=== PATIENT | female | born 1945 | race Caucasian/White ===

== ENCOUNTER → 2022-02-20 08:15 | Outpatient (CLI) | payer MEDICARE, SELFPAY ==
[2022-02-20 19:04] LABS: Basophils # 0.1 K/mm3 (0-0.2); Basophils % 0.6 % (0.1-2.0); Eosinophils # 0.2 K/mm3 (0.0-0.4); Eosinophils % 1.7 % (0.1-12.0); Hematocrit 46.7 % (37.0-47.0); Hemoglobin 15.4 g/dL (12.2-16.2); Lymphocytes # 2.1 K/mm3 (0.7-4.5); Lymphocytes % 23.7 % (10-50); Mean Corpuscular Hemoglobin 30.4 pg (27.0-31.2); Mean Corpuscular Volume 92.3 fl (81-99); Mean Platelet Volume 11.3 fl (7.4-10.4); Monocytes # 0.4 K/mm3 (0.1-1.0); Neutrophils # 6.1 K/mm3 (1.8-7.8); Platelet Count 232 K/mm3 (142-424); Red Blood Count 5.06 M/mm3 (4.20-5.40); Red Cell Distribution Width 12.9 % (11.5-17.5); White Blood Count 8.8 K/mm3 (4.8-10.8)
[2022-02-20 19:30] LABS: Alanine Aminotransferase 29 U/L (12-78); Albumin Level 3.7 g/dl (3.5-5.0); Albumin/Globulin Ratio 1.4 (1.1-1.8); Alkaline Phosphatase 272 U/L (38-126); Anion Gap 8.9 mEq/L (5-15); Aspartate Amino Transferase 22 U/L (14-36); Blood Urea Nitrogen 21 mg/dl (7-17); Calcium 8.9 mg/dl (8.4-10.2); Carbon Dioxide 29 mmol/L (22.0-30.0); Chloride 104 mmol/L (98-107); Chol/HDL Ratio 5.7 (1-3.5); Cholesterol 224 mg/dl (140-200); Estimated Glomerular Filt Rate 82 ml/min (>60); GFR (African American) 99 ML/MIN (>60); Globulin 2.6 g/dL (1.3-3.2); Glucose 298 mg/dl (74-100); HDL Cholesterol 39 mg/dl (40-60); Potassium 3.9 mmoL/L (3.5-5.1); Sodium 138 mmol/L (136-145); Total Protein,Serum 6.3 g/dl (6.3-8.2); Triglycerides 379 mg/dl (30-150); VLDL Cholesterol 76 mg/dL (0-40)
[2022-02-20 19:40] LABS: Direct LDL Cholesterol 101.97 mg/dL (100-129)
[2022-02-20 19:45] LABS: 25-OH Vitamin D, Total 22.4 ng/mL (30-100)
[2022-02-20 20:01] LABS: Thyroid Stimulating Hormone 0.38 uIU/mL (0.465-4.68)
== END ==
PROVIDERS: PCP Nurse Practitioner; Visit Provider Nurse Practitioner
DX: E11.9 Type 2 diabetes mellitus without complications (principal); D44.0 Neoplasm of uncertain behavior of thyroid gland; E55.9 Vitamin D deficiency, unspecified; Z79.84 Long term (current) use of oral hypoglycemic drugs
CPT/HCPCS: 80053; 80061; 82306; 84443; 85025

== ENCOUNTER → 2022-02-24 10:44 | Outpatient (CLI) | payer MEDICARE, SELFPAY ==
--- NOTE | 2022-02-24 10:49 | US_ITS ---
FINAL REPORT CLINICAL HISTORY: neoplasm of thyroid, hx partial thyroidectomy FINDINGS: THYROID ULTRASOUND The right lobe of the thyroid measures 5.7 x 4.0 x 3.0 cm. The left lobe of the thyroid has been surgically removed. There are multiple small right is Bonds cysts. A a mass in the right lobe of the thyroid measures 4.6 x 3.5 x 2.5 cm is predominantly solid and isoechoic consistent with a TI-RADS 3. An 11 x 10 x 8 mm lower pole right thyroid nodule is cystic, solid and hypoechoic consistent with a TI-RADS 3. A hypoechoic and solid 10 x 6 x 4 mm TI-RADS 3 nodule is also seen in the right lobe of the thyroid. There is a 10 x 8 x 4 mm cystic TI-RADS 1 nodule in the right lobe of the thyroid. There are other smaller nodules. IMPRESSION: Multiple right thyroid nodules. Recommend ultrasound-guided FNA of the dominant right 4.6 cm mass. Left thyroid lobe surgically absent. Reviewed, Interpreted and Dictated by Davey Balderas III, MD Transcribed by Gabriel Garcia Authenticated and [facility]
== END ==
PROVIDERS: PCP Nurse Practitioner; Visit Provider Nurse Practitioner
DX: D44.0 Neoplasm of uncertain behavior of thyroid gland (principal); E89.0 Postprocedural hypothyroidism
CPT/HCPCS: 76536

== ENCOUNTER → 2022-03-07 09:41 | Outpatient (CLI) | payer MEDICARE, SELFPAY ==
--- NOTE | 2022-03-07 09:41 | US_ITS ---
FINAL REPORT CLINICAL HISTORY: .RT THYROID NODULE/MASS, JORDIN HARDING FINDINGS: Ultrasound guided thyroid biopsy. HISTORY: Right thyroid mass. Attending radiologist: Dr. Balderas Physician Glass Pulverizer Equipment Operator: Jordin Gaspar PA-C PROCEDURE: After informed consent was obtained and a time-out was performed, the patient was prepped and draped in usual sterile fashion over the right neck. Utilizing local anesthesia and sterile technique with a 25-gauge needle, access to lesion was obtained. 4 passes were made. The patient received no conscious sedation. The patient tolerated procedure well and left the department in good condition. IMPRESSION: Status post ultrasound guided biopsy of right lobe of the thyroid without immediate complication. Films reviewed , interpreted and dictated by Dr. Balderas. Transcribed by Jordin Gaspar PA-C. Reviewed, Interpreted and Dictated by Davey Balderas III, MD Transcribed by MEHDI Stanley Authenticated and [facility]
== END ==
PROVIDERS: PCP Nurse Practitioner; Visit Provider Nurse Practitioner
DX: E04.1 Nontoxic single thyroid nodule (principal)
CPT/HCPCS: 10005; 76536; 88173; 88305

== ENCOUNTER → 2023-02-24 23:21 | Outpatient (CLI) | payer MEDICARE, SELFPAY ==
[2023-02-24 18:40] LABS: Basophils % 0.6 % (0.1-2.0); Eosinophils # 0.2 K/mm3 (0.0-0.4); Eosinophils % 2.4 % (0.1-12.0); Hematocrit 49.4 % (37.0-47.0); Hemoglobin 16.2 g/dL (12.2-16.2); Lymphocytes # 2.8 K/mm3 (0.7-4.5); Lymphocytes % 36.3 % (10-50); Mean Corpuscular HGB Conc 32.7 g/dL (31.8-35.4); Mean Corpuscular Hemoglobin 30.5 pg (27.0-31.2); Mean Corpuscular Volume 93.2 fl (81-99); Mean Platelet Volume 8.6 fl (7.4-10.4); Monocytes # 0.5 K/mm3 (0.1-1.0); Monocytes % 6.6 % (1.7-9.3); Neutrophils # 4.2 K/mm3 (1.8-7.8); Neutrophils % 54.1 % (37.0-80.0); Platelet Count 245 K/mm3 (142-424); Red Cell Distribution Width 13.1 % (11.5-17.5); White Blood Count 7.7 K/mm3 (4.8-10.8)
[2023-02-24 18:43] LABS: Creatinine,Urine Random 111 mg/dL (Not Estab.)
[2023-02-24 18:44] LABS: Microalbumin/Creatinine Ratio 5.5
[2023-02-24 18:50] LABS: Alanine Aminotransferase 24 U/L (12-78); Albumin Level 4.3 g/dl (3.5-5.0); Albumin/Globulin Ratio 1.4 (1.1-1.8); Alkaline Phosphatase 147 U/L (38-126); Anion Gap 11.4 mEq/L (5-15); Aspartate Amino Transferase 29 U/L (14-36); Bilirubin,Total 0.7 mg/dl (0.2-1.3); Blood Urea Nitrogen 17 mg/dl (7-17); Calcium 8.8 mg/dl (8.4-10.2); Carbon Dioxide 28 mmol/L (22.0-30.0); Chloride 103 mmol/L (98-107); Chol/HDL Ratio 4.5 (1-3.5); Cholesterol 257 mg/dl (140-200); Estimated Glomerular Filt Rate 70 ml/min (>60); GFR (African American) 85 ML/MIN (>60); Glucose 118 mg/dl (74-100); HDL Cholesterol 57 mg/dl (40-60); Potassium 4.4 mmoL/L (3.5-5.1); Sodium 138 mmol/L (136-145); Total Protein,Serum 7.3 g/dl (6.3-8.2); Triglycerides 165 mg/dl (30-150); VLDL Cholesterol 33 mg/dL (0-40)
[2023-02-24 19:01] LABS: Direct LDL Cholesterol 150.02 mg/dL (100-129)
[2023-02-24 19:13] LABS: 25-OH Vitamin D, Total 79.8 ng/mL (30-100)
[2023-02-24 19:22] LABS: Thyroid Stimulating Hormone < 0.02 uIU/mL (0.465-4.68)
[2023-02-24 19:45] LABS: Vitamin B12 > 1000 pg/mL (239-931)
[2023-02-24 19:50] LABS: Hemoglobin A1C 6.4 % (4.0-6.0)
== END ==
PROVIDERS: PCP Nurse Practitioner; Visit Provider Nurse Practitioner
DX: E11.9 Type 2 diabetes mellitus without complications (principal); E55.9 Vitamin D deficiency, unspecified; E78.5 Hyperlipidemia, unspecified; Z79.84 Long term (current) use of oral hypoglycemic drugs
CPT/HCPCS: 80053; 80061; 82043; 82306; 82570; 82607; 83036; 84443; 85025

== ENCOUNTER 2023-05-25 18:20 | Outpatient (CLI) | payer MEDICARE, SELFPAY ==
[2023-05-25 18:55] LABS: Alanine Aminotransferase 34 U/L (12-78); Albumin Level 4.1 g/dl (3.5-5.0); Albumin/Globulin Ratio 1.6 (1.1-1.8); Alkaline Phosphatase 173 U/L (38-126); Anion Gap 10.4 mEq/L (5-15); Aspartate Amino Transferase 33 U/L (14-36); Bilirubin,Total 0.7 mg/dl (0.2-1.3); Blood Urea Nitrogen 18 mg/dl (7-17); Carbon Dioxide 28 mmol/L (22.0-30.0); Chloride 106 mmol/L (98-107); Chol/HDL Ratio 3.2 (1-3.5); Cholesterol 167 mg/dl (140-200); Estimated Glomerular Filt Rate 82 ml/min (>60); GFR (African American) 99 ML/MIN (>60); Globulin 2.5 g/dL (1.3-3.2); Glucose 134 mg/dl (74-100); HDL Cholesterol 52 mg/dl (40-60); Potassium 4.4 mmoL/L (3.5-5.1); Sodium 140 mmol/L (136-145); Total Protein,Serum 6.6 g/dl (6.3-8.2); Triglycerides 150 mg/dl (30-150); VLDL Cholesterol 30 mg/dL (0-40)
[2023-05-25 19:05] LABS: Direct LDL Cholesterol 77.98 mg/dL (100-129)
== END 2023-05-25 23:59 ==
LOC: LAB.DROPOF 18:21
PROVIDERS: PCP Nurse Practitioner; Visit Provider Nurse Practitioner
DX: E11.9 Type 2 diabetes mellitus without complications (principal); E78.5 Hyperlipidemia, unspecified; Z79.899 Other long term (current) drug therapy
CPT/HCPCS: 80053; 80061

== ENCOUNTER 2024-12-26 10:13 | Outpatient (CLI) | payer MEDICARE, SELFPAY ==
--- OUTSIDE RECORDS SUMMARY | 2024-11-18 08:54 | XMS_ITS | Encounter Summary ---
Author Organization [place] [address] Care Team Providers Care Adapted Physical Education Specialist Name Role Phone Unavailable Primary Care Provider Unavailabl e Reason for Visit * Ultrasound (Routine) - Pending Review Specialty Diagnoses / Procedures Referred By Contac t Referred To Contact Radiology Diagnoses Thyroid nodule Procedures US THYROID US THYROID SURVEILLANCE US THYROID Jacinto Bush MD [address] [place] [address] Phone: tel: fax: Referral ID Status Reason Start Date Expiration Date V isits Requested Visits Authorized [id number] Pending Review 07/27/2024 07/27/2025 1 1 Encounter Details Date Type Department Care Team (Latest Contact Info) Description 11/18/2024 8:54 AM EDT - 11/18/2024 11:59 PM EDT Hospital Encounter [facility] [address] Jacinto Bush MD [address] [place] [address] Thyroid nodule Discharge Disposition: Home or Self Care Social History Tobacco Use Types Packs/Day Years Used Date Smoking Tobacco: Never Smokeless Tobacco: Never Alcohol Use Standard Drinks/Week Comments Never 0 (1 standard drink = 0.6 oz pur e alcohol) Sexually Active Control Partners Comments Yes Post-menopausal Male - sp ouse only Comments No Sex and Gender Information Value Date Recorded Sex Assigned at Not on file Legal Sex Female 6:06 PM EDT Gender Identity Not on file Sexual Orientation Not on file documented as of this encounter Medications at Time of Discharge biotin 5,000 mcg SL Tablet, Sublingual Take 5,000 mg by mouth daily. calcium carbonate/vitamin D3 (VITAMIN D-3 ORAL) Take 125 mcg by mouth daily. loratadine (CLARITIN ORAL) Multivit-Mineral- Iron-Lutein Oral Tablet Take by mouth daily. psyllium husk/calcium carb (FIBER PLUS CALCIUM ORAL) Take 2 Tablets by mouth daily. rosuvastatin (CRESTOR) 10 mg Oral Tablet Take 1 Tablet by mouth daily. 90 Tablet 3 01/27/2024 TRUE METRIX GLUCOSE TEST STRIP Misc Strip 03/31/2022 glimepiride (AMARYL) 4 mg Oral Tablet Take 1 Tablet by mouth daily. 90 Tablet 1 07/27/2024 11/23/2024 documented as of this encounter Discharge Disposition Disposition Code Departure Means Destination Home or Self Care documented in this encounter Plan of Treatment Upcoming Encounters Date Type Department Care Team (Late st Contact Info) Description 05/24/2025 2:45 PM EST [facility] [place] [address] [facility] [address] [place] [phone] Jacinto Bush MD [address] [place] [address] documented as of this encounter Procedures Procedure Name Priority Date/Time Associated Diagnosis Comments US THYROID Routine 11/18/2024 9:42 AM EDT Thyroid nodule documented in this encounter Results * US THYROID (11/18/2024 9:42 AM EDT) Anatomical Region Laterality Modality Neck Ultrasound 11/18/2024 9:42 AM EDT Impressions 11/18/2024 10:04 AM EDT Stable right-sided thyroid nodule. Recommend biopsy if not previously performed. - Note: Radiology results need to be interpreted within a comprehensive clinical context. If you have questions about the radiology report, please contact the office of the ordering clinician. Narrative 11/18/2024 10:04 AM EDT THYROID SONOGRAPHY, 11/18/2024 9:42 AM CLINICAL HISTORY: Thyroid nodule(s). 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 COMPARISON: 09/30/2023 PROCEDURE COMMENTS: Sonographic evaluation of the thyroid gland per protocol. Images and technologist notes reviewed. METHODOLOGY: Up to 4 nodules with the highest scores are reported using the Thyroid Imaging Reporting and Data System (TI-RADS). This system promotes a common lexicon for thyroid nodule description, focusing on relevant imaging characteristics to allow risk stratification of individual nodules and makes recommendations for biopsy or sonographic follow-up based on the estimated risk profile. Caveat: Deviation from the below TI-RADS management recommendations may be appropriate based on individual patient variables and/or differing society criteria. Right lobe measures: 6.7 x 4.0 x 3.2 cm. Left lobe measures: Resected cm. RIGHT-side lymph nodes: No suspicious lymph nodes. LEFT-side lymph nodes: No suspicious lymph nodes. Nodule #1: Location: Right Size: 3.7 x 3.6 x 2.9 cm Prior measurement 3.8 x 2.6 x 3.9 cm Composition: Solid or almost completely solid. 2 points. Echogenicity: Hypoechoic (equal to or more echogenic than strap muscles.) 2 points. Shape: Not taller than wide. 0 points. Margin: Smooth. 0 points. Echogenic foci: None or large comet-tails. 0 points. Total points: 4-6 points. TI-RADS category 4. FNA if 1.5 cm or greater. Follow in 1, 2, 3, and 5 yrs if 1-1.4cm. No significant additional finding. Procedure Note Bautista Rodriguez MD - 11/18/2024 THYROID SONOGRAPHY, 11/18/2024 9:42 AM CLINICAL HISTORY: Thyroid nodule(s). 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 COMPARISON: 09/30/2023 PROCEDURE COMMENTS: Sonographic evaluation of the thyroid gland perprotocol. Images and technologist notes reviewed. METHODOLOGY: Up to 4 nodules with the highest scores are reported usingthe Thyroid Imaging Reporting and Data System (TI-RADS). This system promotesa common lexicon for thyroid nodule description, focusing on relevantimaging characteristics to allow risk stratification of individual nodules andmakes recommendations for biopsy or sonographic follow-up based on the estimatedrisk profile. Caveat: Deviation from the below TI-RADS management recommendations maybe appropriate based on individual patient variables and/or differingsociety criteria. Right lobe measures: 6.7 x 4.0 x 3.2 cm. Left lobe measures: Resected cm. RIGHT-side lymph nodes: No suspicious lymph nodes. LEFT-side lymph nodes: No suspicious lymph nodes. Nodule #1: Location: Right Size: 3.7 x 3.6 x 2.9 cm Prior measurement 3.8 x 2.6 x3.9 cm Composition: Solid or almost completely solid. 2 points. Echogenicity: Hypoechoic (equal to or more echogenic than strap muscles.)2 points. Shape: Not taller than wide. 0 points. Margin: Smooth. 0 points. Echogenic foci: None or large comet-tails. 0 points. Total points: 4-6 points. TI-RADS category 4. FNA if 1.5 cm or greater.Follow in 1, 2, 3, and 5 yrs if 1-1.4cm. No significant additional finding. IMPRESSION: Stable right-sided thyroid nodule. Recommend biopsy if not previously performed. - Note: Radiology results need to be interpreted within a comprehensiveclinical context. If you have questions about the radiology report, please contactthe office of the ordering clinician. us Jacinto Bush MD [facility] US ORDERABLES Final Resul t documented in this encounter Visit Diagnoses Diagnosis Thyroid nodule Nontoxic uninodular goiter documented in this encounter Additional Health Concerns Assessment Noted Time A fall risk assessment has been complete d for the patient 06/19/2022 10:40 AM EDT documented as of this encounter
--- OUTSIDE RECORDS SUMMARY | 2024-11-23 14:45 | XMS_ITS | Encounter Summary ---
Author Organization [place] [address] Care Team Providers Care Roof Technician Name Role Phone Unavailable Primary Care Provider Unavailabl e Reason for Visit * Reason Comments Other Thyroid US results Encounter Details Date Type Department Care Team (Late st Contact Info) Description 11/23/2024 2:45 PM EDT [facility] [place] [address] [facility] [address] [place] [address] Jacinto Bush MD [address] [place] [address] Type 2 diabetes mellitus with stage 3a chronic kidney disease, without long-term current use of insulin (HCC) (Primary Dx); Hyperlipidemia associated with type 2 diabetes mellitus (HCC); Hypothyroidism, postablative; Thyroid nodule Social History Tobacco Use Types Packs/Day Years Used Date Smoking Tobacco: Never Smokeless Tobacco: Never Tobacco Cessation:Counseling Given: Not Answered Alcohol Use Standard Drinks/Week Comments Never 0 [...] on file documented as of this encounter Last Filed Vital Signs Vital Sign Reading Time Taken Comments Blood Pressure 117/74 11/23/2024 2:36 PM EDT Pulse 72 11/23/2024 2:36 PM EDT Temperature - - Respiratory Rate 16 11/23/2024 2:36 PM EDT Oxygen Saturation - - Inhaled Oxygen Concentration - - Weight 74.4 kg (164 lb) 11/23/2024 2:36 PM EDT Height 165.1 cm (5' 5 ) 11/23/2024 2:36 PM EDT Body Mass Index 27.29 11/23/2024 2:36 PM EDT documented in this encounter Ordered Prescriptions Prescription Sig Dispense Quantity Refills Last Filled Start Date End Date glimepiride (AMARYL) 4 mg Oral Tablet Take 1 Tablet by mouth daily. 90 Tablet 1 11/23/2024 documented in this encounter Progress Notes * Jacinto Bush MD - 11/23/2024 2:45 PM EDT Subjective Subjective: Patient ID: Claudine Briseno is a 79 y.o. female. Chief Complaint Patient presents with Other Thyroid US results HPI: Claudine returns for follow up of thyroid nodule and discussion of her thyroid ultrasound results. She reports feeling well and has been following her treatment plan. She had ultrasound of thyroid completed that I reviewed with her. PMSFH: Past Medical History: Diagnosis Date Diabetes mellitus (HCC) Hyperlipidemia Hyperthyroidism Patients past medical, family and social histories were reviewed and updated. There were no changesexcept as noted. Review of Systems Objective Outpatient Medications Marked as Taking for the 11/23/24 encounter (Office Visit) with Lulu Bush MD Medication Sig Dispense Refill biotin 5,000 mcg SL Tablet, Sublingual Take 5,000 mg by mouth daily. calcium carbonate/vitamin D3 (VITAMIN D-3 ORAL) Take 125 mcg by mouth daily. glimepiride (AMARYL) 4 mg Oral Tablet Take 1 Tablet by mouth daily. 90 Tablet 1 [DISCONTINUED] glimepiride (AMARYL) 4 mg Oral Tablet Take 1 Tablet by mouth daily. 90 Tablet 1 loratadine (CLARITIN ORAL) Gxjhczzi-Hfkeuvz-Tegm-Lutein Oral Tablet Take by mouth daily. psyllium husk/calcium carb (FIBER PLUS CALCIUM ORAL) Take 2 Tablets by mouth daily. rosuvastatin (CRESTOR) 10 mg Oral Tablet Take 1 Tablet by mouth daily. 90 Tablet 3 TRUE METRIX GLUCOSE TEST STRIP Misc Strip Objective: DATA REVIEW: LABS Recent and historical labs reviewed in chart, results discussed with patient. IMAGING COMPARISON: 10/16/2022 PROCEDURE COMMENTS: Sonographic evaluation of the thyroid gland per protocol. Images and technologist notes reviewed. Right lobe measures: 6.1 x 4 x 2.9 cm. Left lobe measures: Absent RIGHT-side lymph nodes: No suspicious lymph nodes. LEFT-side lymph nodes: No suspicious lymph nodes. Nodule #1: Location: Right lobe Size: 3.8 x 2.9 x 4 Prior measurement 4.7 x 3.6 x 2.5 Composition: Solid or almost completely solid. 2 points. Echogenicity: Hyperechoic or isoechoic. 1 point. Shape: Not taller than wide. 0 points. Margin: Smooth. 0 points. Echogenic foci: None or large comet-tails. 0 points. Total points: 3 points. TI-RADS category 3. FNA if 2.5cm or greater in longest dimension. Follow in 1, 3, and 5 years if 1.5-2.4 cm in longest dimension. No lesion is seen in the left thyroid bed. Some scattered cysts and spongiform nodules in the inferior right lower pole region appear grossly stable. IMPRESSION: No change in thyroid nodules allowing for variances in measurement technique. DIABETES CGM Lab Results Component Value Date HGBA1C 7.9 (H) 07/25/2024 HGBA1C 7.3 (H) 01/25/2024 HGBA1C 7.4 (H) 10/19/2023 RENAL Lab Results Component Value Date CREATININE 0.75 07/25/2024 Lab Results Component Value Date MICROALBCR 07/25/2024 Comment: Because the albumin level is below the level of detection in this urine specimen, the laboratory isunable to calculate a reliable albumin/creatinine ratio. Microalbuminuria is unlikely if the urine albumin concentration is less than 20- 30 mg/L in a randomspecimen. LIPIDS No components found for: LDL Lab Results Component Value Date LDLCALC 60 07/25/2024 No results found for: LDLDIRECT Lab Results Component Value Date HDL 54 07/25/2024 Lab Results Component Value Date TRIG 120 07/25/2024 Lab Results Component Value Date CHOLESTEROL 135 07/25/2024 OTHER Lab Results Component Value Date TSH 0.480 07/25/2024 FREET4 1.09 07/25/2024 Lab Results Component Value Date YKZI21GN 22.4 02/20/2022 No results found for: [id number] Vitals: 11/23/24 1436 BP: 117/74 Pulse: 72 Resp: 16 Weight: 164 lb (74.4 kg) Height: 5' 5 (1.651 m) Body mass index is 27.29 kg/m??. Physical Exam Vitals and nursing note reviewed. Neck: Thyroid: Thyroid mass and thyromegaly present. Comments: Palpable nodule right thyroid lobe. Assessment and Plan: Diagnoses and all orders for this visit: Type 2 diabetes mellitus with stage 3a chronic kidney disease, without long-term current use of insulin (HCC) (Chronic) - MICROALBUMIN/CREATININE RATIO URINE; Future; Expected date: 04/25/2025 (Before Next Appt) - HEMOGLOBIN A1C; Future; Expected date: 04/25/2025 (Before Next Appt) - CBC; Future; Expected date: 04/25/2025 (Before Next Appt) Hyperlipidemia associated with type 2 diabetes mellitus (HCC) (Chronic) - COMPREHENSIVE METABOLIC PANEL; Future; Expected date: 04/25/2025 (Before Next Appt) - LIPID PANEL REFLEX; Future; Expected date: 04/25/2025 (Before Next Appt) Hypothyroidism, postablative - T3 FREE; Future; Expected date: 04/25/2025 (Before Next Appt) - T4, FREE (THYROXINE); Future; Expected date: 04/25/2025 (Before Next Appt) - THYROID STIMULATING HORMONE; Future; Expected date: 04/25/2025 (Before Next Appt) Thyroid nodule Other orders - glimepiride (AMARYL) 4 mg Oral Tablet; Take 1 Tablet by mouth daily. Dispense: 90 Tablet; Refill:1 Assessment and Recommendations: Type 2 diabetes with hyperglycemia is stable but not at goal with HbA1c of 7.9%. She is tolerating the glimepiride 4 mg dose without any hypoglycemia. She feels this is working better for her. Thyroid nodule right lobe is asymptomatic. Her biopsy in 2022 was consistent with benign follicularnodule. Her ultrasound shows stable nodule size. The TI RADS scoring was changed to 4 but since this was consistent with benign follicular nodule and it has not increased in size I recommend continued observation with ultrasound around October 2025. Hypercholesterolemia with LDL at goal with rosuvatatin 10 mg daily. She will have fasting labs donebefore follow up in May. Blood pressure well controlled. Return to office: Return in about 6 months (around 05/23/2025) for Type 2 diabetes. documented in this encounter Plan of Treatment Upcoming Encounters Date Type Department Care Team (Late st Contact Info) Description 05/24/2025 2:45 PM EST Office Visit [facility] [place] [address] [facility] [address] [place] [phone] Jacinto Bush MD [address] [place] [address] Scheduled Orders Name Type Priority Associated Diagnoses Orde r Schedule MICROALBUMIN/CREATININE RATIO URINE Lab Routine Type 2 diabetes mellitus with stage 3a chronic kidney disease, without long-term current use of insulin (HCC) Expected: 04/25/2025 (Approximate), Expires: 11/23/2025 HEMOGLOBIN A1C Lab Routine Type 2 diabetes mellitus with stage 3a chronic kidney disease, without long-term current use of insulin (HCC) Expected: 04/25/2025 (Approximate), Expires: 11/23/2025 COMPREHENSIVE METABOLIC PANEL Lab Routine Hyperlipidemia associated with type 2 diabetes mellitus (HCC) Expected: 04/25/2025 (Approximate), Expires: 11/23/2025 LIPID PANEL REFLEX Lab Routine Hyperlipidemia associated with type 2 diabetes mellitus (HCC) Expected: 04/25/2025 (Approximate), Expires: 11/23/2025 CBC Lab Routine Type 2 diabetes mellitus with stage 3a chronic kidney disease, without long-term current use of insulin (HCC) Expected: 04/25/2025 (Approximate), Expires: 11/23/2025 T3 FREE Lab Routine Hypothyroidism, postablative Expected: 04/25/2025 (Approximate), Expires: 11/23/2025 T4, FREE (THYROXINE) Lab Routine Hypothyroidism, postablative Expected: 04/25/2025 (Approximate), Expires: 11/23/2025 THYROID STIMULATING HORMONE Lab Routine Hypothyroidism, postablative Expected: 04/25/2025 (Approximate), Expires: 11/23/2025 documented as of this encounter Visit Diagnoses Diagnosis Type 2 diabetes mellitus with stage 3a chronic kidney disease, without long-term current use of insulin (HCC)- Primary Hyperlipidemia associated with type 2 diabetes mellitus (HCC) Hypothyroidism, postablative Other postablative hypothyroidism Thyroid nodule Nontoxic uninodular goiter documented in this encounter Discontinued Medications Medication Sig Discontinue Reason Start Date End Da te glimepiride (AMARYL) 4 mg Oral Tablet Take 1 Tablet by mouth daily. Reorder 07/27/2024 11/23/2024 documented as of this encounter Additional Health Concerns Assessment Noted Time A fall risk assessment has been complete d for the patient 06/19/2022 10:40 AM EDT documented as of this encounter
[2024-12-26 16:20] LABS: Hematocrit 42.0 % (37.0-47.0); Hemoglobin 13.8 g/dL (12.2-16.2); Immature Granulocytes % 0.2 %; Mean Corpuscular HGB Conc 32.9 g/dL (31.8-35.4); Mean Corpuscular Hemoglobin 29.9 pg (27.0-31.2); Mean Corpuscular Volume 90.9 fl (81-99); Nucleated Red Blood Cells % 0 %; Platelet Count 163 K/mm3 (142-424); Red Blood Count 4.62 M/mm3 (4.20-5.40); Red Cell Distribution Width-SD 41.2 fL; White Blood Count 6.0 K/mm3 (4.8-10.8)
[2024-12-26 16:56] LABS: Alanine Aminotransferase 25 U/L (12-78); Albumin Level 3.9 g/dl (3.5-5.0); Albumin/Globulin Ratio 1.6 (1.1-1.8); Alkaline Phosphatase 163 U/L (38-126); Anion Gap 11.6 mEq/L (5-15); Aspartate Amino Transferase 25 U/L (14-36); Bilirubin,Total 1.0 mg/dl (0.2-1.3); Blood Urea Nitrogen 14 mg/dl (7-17); Calcium 8.8 mg/dl (8.4-10.2); Carbon Dioxide 28 mmol/L (22.0-30.0); Chloride 103 mmol/L (98-107); Cholesterol 158 mg/dl (140-200); Creatinine,Serum 0.70 mg/dl (0.52-1.04); Estimated Glomerular Filt Rate 81 ml/min (>60); GFR (African American) 98 ML/MIN (>60); Globulin 2.5 g/dL (1.3-3.2); Glucose 125 mg/dl (74-100); HDL Cholesterol 51 mg/dl (40-60); Potassium 4.6 mmoL/L (3.5-5.1); Sodium 138 mmol/L (136-145); Total Protein,Serum 6.4 g/dl (6.3-8.2); Triglycerides 165 mg/dl (30-150)
[2024-12-26 17:13] LABS: 25-OH Vitamin D, Total 61.8 ng/mL (30-100)
[2024-12-26 18:32] LABS: Hemoglobin A1C 6.9 % (4.0-6.0)
[2024-12-26 18:41] LABS: Hepatitis C Ab Qual. W/ RFX NEGATIVE (Negative)
--- OUTSIDE RECORDS SUMMARY | 2024-12-27 03:26 | XMS_ITS | Encounter Summary ---
Author Organization [place] [address] Care Team Providers Care Can Carrier Name Role Phone Unavailable Primary Care Provider Unavailabl e Encounter Details Date Type Department Care Team (Late st Contact Info) Description 11/22/2024 Results Follow-Up [facility] [address] [phone] Jacinto Bush MD [address] [place] [address] [phone] THYROID Social History Tobacco Use Types Packs/Day Years [...] on file documented as of this encounter Progress Notes * Jacinto Bush MD - 11/22/2024 12:48 PM EDT Ultrasound reviewed. Findings are stable. I will discuss these at upcoming follow up. documented in this encounter Plan of Treatment Upcoming Encounters Date Type Department Care Team (Late st Contact Info) Description 05/24/2025 2:45 PM EST Office Visit [facility] [place] [address] [facility] [address] [place] [address] Jacinto Bush MD [address] [place] [address] documented as of this encounter Visit Diagnoses Not on filedocumented in this encounter Additional Health Concerns Assessment Noted Time A fall risk assessment has been complete d for the patient 06/19/2022 10:40 AM EDT documented as of this encounter
--- OUTSIDE RECORDS SUMMARY | 2024-12-27 03:27 | XMS_ITS | Clinical Summary ---
Author Organization [facility] Address [address] [place] [address] Phone Care Team Providers Care Tie Up Worker Name Role Phone Unavailable Primary Care Provider Unavailabl e Allergies Active Allergy Reactions Criticality Noted Date Comments Mercurochrome 11 Dermatitis 06/19/2022 Mercury (Elemental) Other (See Comments) High 2022 Medications TRUE METRIX GLUCOSE TEST STRIP Misc Strip 03/31/2022 Active calcium carbonate/vitam in D3 (VITAMIN D-3 ORAL) Take 125 mcg by mouth daily. Active psyllium husk/calcium carb (FIBER PLUS CALCIUM ORAL) Take 2 Tablets by mouth daily. Active biotin 5,000 mcg SL Tablet, Sublingual Take 5,000 mg by mouth daily. Active Multivit-Minera f-Lunm-Dpcxei Oral Tablet Take by mouth daily. Active rosuvastatin (CRESTOR) 10 mg Oral Tablet Take 1 Tablet by mouth daily. 90 Tablet 3 01/27/2024 Active loratadine (CLARITIN ORAL) Acti ve glimepiride (AMARYL) 4 mg Oral Tablet Take 1 Tablet by mouth daily. 90 Tablet 1 11/23/2024 Active Active Problems Problem Noted Date Diagnosed Date Statin medication declined by patient 06/19/2022 Type 2 diabetes mellitus wit h hyperglycemia, without long-term current use of insulin 04/04/2022 Thyroid nodule 04/04/2022 Hyperlipidemia associated with type 2 diabetes m chuy 04/04/2022 Encounters Date Type Department Care Team Description 11/23/2024 2:45 PM EDT Office Visit [facility] [address] [facility] [address] [place] [address] Jacinto Bush MD Type 2 diabetes mellitus with stage 3a chronic kidney disease, without long-term current use of insulin (HCC) (Primary Dx); Hyperlipidemia associated with type 2 diabetes mellitus (HCC); Hypothyroidism, postablative; Thyroid nodule 11/22/2024 Results Follow-Up [address] [address] Jacinto Bush MD US THYROID 11/18/2024 8:54 AM EDT - 11/18/2024 11:59 PM EDT Hospital Encounter [facility] [place] [address] Jacinto Bush MD Thyroid nodule Discharge Disposition: Home or Self Care 11/18/2024 Travel 10/17/2024 Telephone [facility] [address] [facility] [address] [place] [address] Jacinto Bush MD Cancellation from Last 3 Months Surgical History Surgery Date Site/Laterality Comments THYROIDECTOMY CHOLECYSTECTOMY PARATHYROID GLAND SURGERY 2005 TOOTH EXTRACTION Right 08/2023 Medical History Medical History Date Comments Hyperlipidemia Diabetes mellitus (HCC) Hyperthyroidism Family History Medical History Relation Name Comments Diabetes Sister 1 Zaria Eric Diabetes Sister 2 Lisandra Hendy Diabetes Thyroid Disease Sister 3 Marianne Hendy Thyroid Disease Sister 4 Giselle Agiular Thyroid Diabetes Sister 5 Zaria Eric Thyroid Disease Sister 6 Marianne Hendy Thyroid Disease Sister 7 Zaria Eric Relation Name Status Comments Sister 1 Zaria Eric Sister 2 Lisandra Hendy Sister 3 Marianne Hendy Sister 4 Giselle Aguilar Sister 5 Zaria Eric Alive Sister 6 Marianne Hendy Alive Sister 7 Zaria Eric Alive Social History Tobacco Use Types Packs/Day Years [...] on file Sexual Orientation Not on file Obstetrics History Para Term AB IAB SAB Ectopic Multiple Livin g Live Births 3 Last Filed Vital Signs Vital Sign Reading Time Taken Comments Blood Pressure 117/74 11/23/2024 2:36 PM EDT Pulse 72 11/23/2024 2:36 PM EDT Temperature 36.9 C (98.4 F) 10/21/2022 1:05 PM EDT Respiratory Rate 16 11/23/2024 2:36 PM EDT Oxygen Saturation 97% 10/21/2022 1:05 PM EDT Inhaled Oxygen Concentration - - Weight 74.4 kg (164 lb) 11/23/2024 2:36 PM EDT Height 165.1 cm (5' 5 ) 11/23/2024 2:36 PM EDT Body Mass Index 27.29 11/23/2024 2:36 PM EDT Plan of Treatment Upcoming Encounters Date Type Department Care Team (Late st Contact Info) Description 05/24/2025 2:45 PM EST Office Visit [facility] Diabetes [place] [address] [facility] [address] [place] [id number] Jacinto Bush MD [address] [place] [id number] Health Maintenance Due Date Last Done Comments Wellness Exam Medicare 05/26/1948 Hepatitis C Screening 05/26/1965 Zoster (2 of 3) 03/10/2019 01/13/2019 Pneumococcal Vaccine 50+ (2 of 2 - PCV) 06/18/2019 06/17/2018 RSV or 60+ (1 - 1-dose 75+ series) 05/26/2022 COVID-19 Vaccine ( season) 2024 01/28/2021, 05/24/2020, 04/26/2020 Influenza Vaccine (#1) 2024 2, 01/07/2021, 12/27/2019, Additional history exists Hemoglobin A1c 01/25/2025 07/25/2024, 06/2023, 10/19/2023, Additional history exists Kidney Health: eGFR 07/25/2025 07/25/2024, 01/25/2024, 10/19/2023, Additional history exists Kidney Health: uACR 07/25/2025 07/25/2024, 01/25/2024, 10/19/2023, Additional history exists Lipids 07/25/2025 07/25/2024, 06/2023, 10/19/2023, Additional history exists Diabetic Eye Exam 03/02/2026 03/02/2024 DTaP/TDaP/Td (2 - Td or Tdap) 06/17/2028 06/17/2018 Bone Density Screening Completed 12/23/2019, 2012 Colon Cancer Screening Discontinued Colonoscopy Discontinued 02/28/2021 Cologuard Discontinued FIT Discontinued Hepatitis B Vaccine Aged Out No longe r eligible based on patient's age to complete this topic Meningococcal B Vaccine Aged Out No l onger eligible based on patient's age to complete this topic Sigmoidoscopy Discontinued Virtual Colonography Discontinued Procedures Procedure Name Priority Date/Time Associated Diagnosis Comments US THYROID Routine 11/18/2024 9:42 AM EDT Thyroid nodule MICROALBUMIN/CREATININ E RATIO URINE Routine 07/25/2024 8:30 AM EDT Type 2 diabetes mellitus with stage 3a chronic kidney disease, without long-term current use of insulin (HCC) COMPREHENSIVE METABOLIC PANEL Routine 07/25/2024 8:30 AM EDT Type 2 diabetes mellitus with stage 3a chronic kidney disease, without long-term current use of insulin (HCC) Hyperlipidemia associated with type 2 diabetes mellitus (HCC) LIPID PANEL REFLEX Routine 07/25/2024 8: 30 AM EDT Hyperlipidemia associated with type 2 diabetes mellitus (HCC) HEMOGLOBIN A1C Routine 07/25/2024 8:30 AM EDT Type 2 diabetes mellitus with stage 3a chronic kidney disease, without long-term current use of insulin (HCC) HM DIABETES EYE EXAM Routine 03/02/2024 2:50 PM EST DX BONE DENSITY AXIAL SKELETON Routine 12/23/2019 8:34 AM EDT Postmenopausal from Last 3 Months or Most Recently Relevant to Health Maintenance Results * US THYROID (11/18/2024 9:42 AM [...] CLINICAL HISTORY: Thyroid nodule(s). 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 COMPARISON: 09/30/2023 PROCEDURE COMMENTS: Sonographic evaluation of [...] CLINICAL HISTORY: Thyroid nodule(s). 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 COMPARISON: 09/30/2023 PROCEDURE COMMENTS: Sonographic evaluation of [...] the ordering clinician. us Jacinto Bush MD [facility] US ORDERABLES Final Resul t * LIPID PANEL REFLEX (07/25/2024 8:30 AM EDT) Cholesterol 135 <200 mg/dL 07/25/2024 6:49 PM EDT [facility] Comment: < 200 Desirable 200 - 239 Borderline High >= 240 High Triglyceride 120 <150 mg/dL 07/25/2024 6:49 PM EDT [facility] Comment: < 150 Normal 150 - 199 Borderline High 200 - 499 High >= 500 Very High HDL 54 >=40 mg/dL 07/25/2024 6:49 PM EDT [employer] Comment: > 60 Optimal 40 - 60 Acceptable < 40 Low LDL Calculated 60 <100 mg/dL 07/25/2024 6:49 PM EDT [employer] Comment: < 100 Optimal 100 - 129 Near or above optimal 130 - 159 Borderline High 160 - 189 High >= 190 Very High The National Institutes of Health (NIH) equation is used for all lipid panels that report calculated LDL (LDL-C). Non-HDL-C Calculated 81 <=129 mg/dL 07/25/2024 6:49 PM EDT [employer] Comment: <130 Desirable 130-159 Above Desirable 160-189 Borderline High 190-219 High >= 220 Very High Fasting Specimen? Yes None 025 6:49 PM EDT [employer] Blood VENOUS BLOOD / Unknown Venipuncture / Unknown 07/25/2024 8:30 AM EDT 07/25/2024 8:30 AM EDT us Jacinto Bush MD CHEMISTRY ORDERABLES Final Re sult [facility] [address] [facility] , [place] [address] * MICROALBUMIN/CREATININE RATIO URINE (07/25/2024 8:30 AM EDT) Urine Microalb <12.0 mg/L 07/25/2024 4:42 PM EDT [facility] [employer] [employer] Urine Creatinine 56.2 mg/dL 07/26/19 25 4:42 PM EDT [facility] [employer] [employer] Ur Microalb/Creat 025 4:42 PM EDT [facility] [employer] [facility] Comment: Because the albumin level is below the level of detection in this urine specimen, the laboratory is unable to calculate a reliable albumin/creatinine ratio. Microalbuminuria is unlikely if the urine albumin concentration is less than 20- 30 mg/L in a random specimen. Urine STRUCTURE OF URINARY TRACT PROPER / Unknown 07/25/2024 8:30 AM EDT 07/25/2024 8:30 AM EDT Jacinto Bush MD URINE ORDERABLES Final Result Performing Organization Address [facility] de Phone Number [employer] [address] [place] [address] , [place] [address] * (ABNORMAL) HEMOGLOBIN A1C (07/25/2024 8:30 AM EDT) Hgb A1C 7.9(H) 4.2 - 5.6 % 07/25/2024 5:12 PM EDT [facility] [employer] [facility] Est. Avg Glucose 180 mg/dL 07/25/2024 5:12 PM EDT [employer] [facility] Blood VENOUS BLOOD / Unknown Venipuncture / Unknown 07/25/2024 8:30 AM EDT 07/25/2024 8:30 AM EDT Narrative [facility] [employer] [facility] - 07/25/2024 5:12 PM EDT REFERENCE RANGE: Normal: 4.0-5.6% Pre-diabetes: 5.7-6.4% Provisional diagnosis of diabetes: >6.4% Hgb F>10% and anything which shortens red cell survival, such as hemolytic anemia, or unstable hemoglobin variants such as HbSS, HbSC, or HbCC, will lower the HbA1c value associated with a given level of glycemic control. Jacinto Bush MD CHEMISTRY ORDERABLES Final Re sult Performing Organization Address [facility] Co de Phone Number [employer] [address] [place] [address] , [place] [address] * (ABNORMAL) COMPREHENSIVE METABOLIC PANEL (07/25/2024 8:30 AM EDT) Sodium 138 136 - 145 mmol/L 07/25/2024 6:49 PM EDT [facility] Potassium 4.7 3.5 - 5.0 mmol/L 07/25/2024 6:49 PM EDT [facility] Chloride 102 98 - 107 mmol/L 07/25/2024 6:49 PM EDT [facility] Total CO2 28 22 - 29 mmol/L 07/25/2024 6:49 PM EDT [facility] Anion Gap 8 7 - 16 mmol/L 07/25/2024 6:49 PM EDT [facility] Calcium 9.6 8.8 - 10.4 mg/dL 07/25/2024 6:49 PM EDT [facility] Glucose Lvl 125(H) 70 - 99 mg/dL 07/25/2024 6:49 PM EDT [facility] BUN 16 8 - 23 mg/dL 07/25/2024 6:49 PM EDT [facility] Creatinine 0.75 0.51 - 1.30 mg/dL 07/25/2024 6:49 PM EDT [facility] Albumin 4.1 3.2 - 4.6 gm/dL 07/25/2024 6:49 PM EDT [facility] Total Protein 7.1 6.4 - 8.3 gm/dL 07/25/2024 6:49 PM EDT [facility] Bili Total 0.6 0.2 - 1.3 mg/dL 07/25/2024 6:49 PM EDT [facility] ALT 21 <=41 U/L 07/25/2024 6:49 PM EDT [facility] AST 23 <=40 U/L 07/25/2024 6:49 PM EDT [facility] Alk Phos 142(H) 36 - 123 U/L 07/25/2024 6:49 PM EDT [facility] eGFR (CKD-EPIcr 2020) 82 >=60 mL/min/1.7 3 m2 07/25/2024 6:49 PM EDT [facility] Comment:Estimated GFR was ca lculated using the CKD-EPIcr (2020) equation refit without race. The equation is recommended by the National Kidney Foundation - [place] Society of Nephrology Task Force. Blood VENOUS BLOOD / Unknown Venipuncture / Unknown 07/25/2024 8:30 AM EDT 07/25/2024 8:30 AM EDT Jacinto Bush MD CHEMISTRY ORDERABLES Final Re sult Performing Organization Address City/[facility]/ZIP Co de Phone Number [facility] [employer] [address] , [place] [address] * DIABETES EYE EXAM (03/02/2024 2:50 PM EST) Left Diabetic Retinopathy Not Present Not Present Present/Not Present SEP OFFICE Right Diabetic Retinopathy Not Present Not Present Present/Not Present SEP OFFICE Historical Provider HEALTH MAINTENANCE Edited Re sult - Final Performing Organization Address [facility] Co de Phone Number SEP OFFICE * DX BONE DENSITY AXIAL SKELETON (12/23/2019 8:34 AM EDT) Anatomical Region Laterality Modality Dexa Scan 12/23/2019 Narrative 12/26/2019 4:01 PM EDT Indication: The patient is a female age 65 or older who requires a bone density assessment. Study was performed on [employer] 5. Bone Density: Region BMD T-score Z-score AP Spine (L1-L4) 1.111 0.6 2.8 Femoral Neck (Left) 0.749 -0.9 1.0 Total Hip (Left) 0.899 -0.4 1.3 World Health Organization criteria for BMD interpretation classify patients as: Normal (T-score at or above -1.0), Low Bone Density (T-score between -1.0 and -2.5), or Osteoporotic (T-score at or below -2.5). T Scores are reported in Postmenopausal women and in men age 50 and older. Z-scores are reported in females prior to menopause and in males younger than age 50. 10-year Fracture Risk: FRAX not reported because: All T-scores for Spine Total, Hip Total, Femoral Neck at or above -1.0 Previous Exams: Region Date Age BMD T-score BMD Change AP Spine(L1-L4) 12/23/2019 74 1.111 0.6 2.7% 02/24/2007 61 1.082 0.3 Total Hip(Left) 12/23/2019 74 0.899 -0.4 -3.5%* 02/24/2007 61 0.932 -0.1 *Denotes significance at 95% confidence level, LSC for AP Spine = 0.032g/cm2, LSC for Total Hip = 0.024 g/cm2, LSC for Distal 1/3 Radius = 0.026 g/cm2, site specific LSC for AP Spine = 0.032 g/cm2, site specific LSC for Total Hip = 0.022 g/cm2 BMD is shown in g/cm2 and BMD Change indicates change vs previous BMD Clinical Information Provided by Patient: Patient maximum height was 64.5 Menopause Age: 53 Patient is postmenopausal Interpretation: Bone mineral density is in the normal range. A minimum of two years may be required between bone density studies due to inherent testing precision limitations. Intervals between BMD testing should be determined according to each patient's clinical status. The spine bone mineral density is not significantly changed since the last exam. The left hip bone mineral density is significantly decreased since the last exam. Reported by: Jessica Johnson PA-C, CCD on 12/23/2019 2:16:00 PM. May Aragon APRN [facility] DEXA ORDERABLES Final Resu lt from Last 3 Months or Most Recently Relevant to Health Maintenance Insurance MEDICARE PPO MR
--- OUTSIDE RECORDS SUMMARY | 2024-12-27 03:27 | XMS_ITS | Clinical Summary ---
Author Organization [facility] Address [facility] [place] [address] Care Team Providers Care General Matcher Name Role Phone Historical, Centricity Primary Care Provider Shaunna vailable Source Comments This information has been disclosed to you from confidential records protectedfrom disclosure by state law. You shall make no further disclosure of thisinformation without the specific, written, and informed release of theindividual to whom it pertains, or as otherwise permitted by law. A generalauthorization for the release of medical or other information is not sufficientfor the purposes of therelease of HIV test results or diagnoses. [id number] Social History Tobacco Use Types Packs/Day Years Used Date Smoking Tobacco: Never Assessed Comments Unknown Sex and Gender Information Value Date Recorded Sex Assigned at Not on file Legal Sex Female 10:25 PM EST Gender Identity Not on file Sexual Orientation Not on file Plan of Treatment Not on file Care Teams General Matcher Relationship Specialty Start Date End Date Elmer Friedman PCP - General 04/26/03
--- OUTSIDE RECORDS SUMMARY | 2024-12-27 03:27 | XMS_ITS | Encounter Summary ---
Author Organization [facility] [place] [address] Care Team Providers Care Boat Canvas Installer Name Role Phone Unavailable Primary Care Provider Unavailabl e Encounter Details Date Type Department Care Team (Latest Contact Info) Description 11/18/2024 Travel Social History Tobacco Use Types Packs/Day Years [...] on file documented as of this encounter Plan of Treatment Upcoming Encounters Date Type Department Care Team (Late st Contact Info) Description 05/24/2025 2:45 PM EST Office Visit [facility] [place] [address] [facility] [address] [place] [phone] Jacinto Bush MD [address] [place] [address] documented as of this encounter Visit Diagnoses Not on filedocumented in this encounter Additional Health Concerns Assessment Noted Time A fall risk assessment has been complete d for the patient 06/19/2022 10:40 AM EDT documented as of this encounter
== END 2024-12-26 23:59 ==
LOC: LAB.DROPOF 12-27 03:25
PROVIDERS: PCP Nurse Practitioner; Visit Provider Nurse Practitioner
DX: E78.5 Hyperlipidemia, unspecified (principal); Z11.59 Encounter for screening for other viral diseases; E11.9 Type 2 diabetes mellitus without complications; E55.9 Vitamin D deficiency, unspecified
CPT/HCPCS: 80053; 80061; 82306; 83036; 85025; 86803; 87389